=== PATIENT | male | born 1990 | race Caucasian/White ===

== ENCOUNTER 2021-04-28 13:43 | Emergency (ER) | payer MEDICAID, SELFPAY ==
[2021-04-28 13:44] VITALS: BP 138/63; PULSE 100; RESP 16; TEMP 36; O2SAT 98; BMI 25.7
--- NOTE | 2021-04-28 14:11 | EKG12_ITS ---
Test Reason : SOB Blood Pressure : / mmHG Vent. Rate : 077 BPM Atrial Rate : 077 BPM P-R Int : 146 ms QRS Dur : 086 ms QT Int : 350 ms P-R-T Axes : 077 065 058 degrees QTc Int : 396 ms Normal sinus rhythm Normal ECG Confirmed by DONTE GONZALES, KALYAN ([id number]), editor map RUFINA PETERS ([id number]) on 05/01/2021 10:54:01 AM Referred By: JYOTI Confirmed By:KALYAN KENT MD
--- NOTE | 2021-04-28 14:12 | EDS_ITS ---
HPI History of Present Illness Chief Complaint: Shortness of Breath Narrative Narrative: 31-year-old male presenting with shortness of breath. He states has been short of breath for the last couple of weeks. Its been progressive. He states he has a sporadic cough and taste like there is blood in his mouth however he is not coughing anything up. He states when he takes a deep breath it hurts in the left ribs. Patient states that his workouts have been suffering because he is more fatigued than usual. He states he going to a couple of reps and then he gets sweaty. Patient is a smoker. He has no cardiac history. No history of DVT/PE and no risk factors. Patient states he had COVID a year ago and did not feel like this. He is not had fever, chills, body aches, change in taste or smell. Patient also reports that he is lost the hair on his knuckles. He noticed it last week but does not know when this occurred. He also reports that he believes he is breathing and metal shavings at work. And this could possibly be the cause. PFSH PFS Medical History no medical history Home Medications No Known/Unobtainable [No Known Home Medications] 04/03/16 [History Last Taken Unknown] Allergy/AdvReac Type Severity Reaction Status Date / Time No Known Allergies Allergy Verified 04/28/21 13:46 Surgical History no surgical history Social History Smoking Status: Current every day smoker tobacco type: cigarettes ROS ROS ED Constitutional Constitutional ED: Reports sweats; Denies chills or fever(s) Eyes Eyes: Denies blurry vision or diplopia ENT ENT ED: Denies rhinorrhea or sore throat Cardiovascular Cardiovascular: Reports chest pain Respiratory/Chest Respiratory/Chest: Reports cough and dyspnea Gastrointestinal Gastrointestinal: Denies abdominal pain, nausea or vomiting Genitourinary Genitourinary ED: Denies dysuria or hematuria Musculoskeletal Musculoskeletal: Denies arthralgias or myalgias Integumentary Denies rash Neurologic Neurologic: Denies headache(s) or paresthesias Psychiatric Psychiatric: Denies anxiety or depression EXAM Physical Exam Const Vital Signs: 04/28/21 13:44 04/28/21 13:53 04/28/21 14:20 Temperature 96.8 F L Temperature Source Temporal Pulse Rate 100 Respiratory Rate 16 Respiratory Effort Normal Respiratory Depth Normal Respiratory Pattern Normal Blood Pressure 138/63 H Blood Pressure Mean 88 Pulse Ox 98 Oxygen Delivery Method Room Air Room Air Room Air 04/28/21 15:13 Temperature Temperature Source Pulse Rate 96 Respiratory Rate 22 H Respiratory Effort Respiratory Depth Respiratory Pattern Blood Pressure 126/80 H Blood Pressure Mean 95 Pulse Ox 98 Oxygen Delivery Method Room Air Positive well nourished General Appearance ED: NAD; Negative for pallor HEENT Reports moist mucous membranes atraumatic Eyes PERRL and EOMs intact bilaterally Resp normal respiratory effort and clear to auscultation bilaterally Cardio regular rate and regular rhythm GI non-tender and non-distended Palpation: soft Neuro oriented x3, CN's II-XII intact bilaterally and no sensory deficits noted Sensorium / Orientation: alert Motor Exam: strength 5/5 throughout Psych Mood & Affect: anxious Skin General Skin Exam: Negative for jaundice or pallor Rashes: no rashes MDM MDM MDM Narrative Medical decision making narrative: Patient presenting with shortness of breath and fatigue. I did obtain an EKG which is a sinus rhythm with a ventricular to 77 bpm without sign of ischemic change or dysrhythmia. Chest x-ray my interpretation shows no acute cardiopulmonary process the radiologist agree. Unremarkable. BMP shows a slight elevation of carbon oxide at 33. The patient is a smoker. He is alert and awake. High-sensitivity troponin is 6. D-dimer is negative at 0.37. I do not believe the patient needs a delta troponin because he is young and otherwise healthy. Patient did mention that he was smoking more marijuana and cigarettes and drinking a little more alcohol but not it was at the same time. I counseled these things could make him have more fatigue and make it more difficult for him to work out and this may be affecting him. He acknowledged understanding of this. He was given primary care follow- up. Patient safe for discharge. Impression: 1. Dyspnea 2. Generalized weakness Lab Data Labs: Laboratory Results - last 24 hr 04/28/21 04/28/21 04/28/21 13:54 13:54 13:54 WBC 6.4 RBC 5.23 Hgb 16.6 H Hct 48.7 MCV 93.1 MCH 31.7 MCHC 34.1 RDW Std Deviation 41.1 RDW Coeff of Darwin 11.9 Plt Count 305 MPV 9.5 Immature Gran % (Auto) 0.500 Neut % (Auto) 67.4 Lymph % (Auto) 20.5 [place] % (Auto) 8.6 Eos % (Auto) 2.2 Baso % (Auto) 0.8 Absolute Neuts (auto) 4.3 Absolute Lymphs (auto) 1.31 Nucleated RBC % 0 D-Dimer Quant (PE/DVT) 0.37 Sodium 138 Potassium 3.7 Chloride 103 Carbon Dioxide 33.0 H Anion Gap 2 L BUN 13 Creatinine 0.90 Estim Creat Clear Calc 103.45 Est GFR (MDRD) Af Amer 127 Est GFR (MDRD) Non-Af 105 BUN/Creatinine Ratio 14.5 Glucose 92 Calcium 9.6 Troponin I High Sens 6 Radiography Diagnostic Testing: Clinical Impression(s) from Imaging Studies Chest X-Ray 04/28/21 14:30 IMPRESSION: Hyperinflation. The lungs are clear. Electronically Signed: Syed Reed MD at 14:48 EST , Discharge Plan Triage Chief Complaint: Shortness of Breath ED Provider: Timo Jensen Dx/Rx/DC Orders Instructions: ED Dyspnea, ED Weakness (Uncertain Cause) Prescriptions: No Action No Known Home Medications RF: 0 Primary Care Provider: Care Physician,No Primary Referrals: Osvaldo Hernandez MD [STAFF PHYSICIAN] - 3-5 Days Care Physician,No Primary [Primary Care Provider] - Disposition Disposition: Home, Self Care Discharge Date/Time: 04/28/21 15:17
[2021-04-28 14:24] LABS: Absolute Lymphocyte Count 1.31 X10^3/uL (0.83-4.51); Absolute Neutrophil Count 4.3 X10^3/uL (2.0-7.7); Basophil# 0.05 X10^3/uL; Basophil% 0.8 % (0-1); Eosinophil# 0.14 X10^3/uL; Eosinophils% 2.2 % (0-5); Hematocrit 48.7 % (40-54); Hemoglobin 16.6 g/dL (13.0-16.5); Lymphocyte # 1.31 X10^3/ul (0.83-4.51); Lymphocyte % 20.5 % (19-41); Mean Corp Hgb Conc 34.1 g/dL (32-36); Mean Corpuscular Hgb 31.7 pg (27.0-32.0); Mean Corpuscular Volume 93.1 fL (80-94); Mean Platelet Vol. 9.5 fl (6.2-12.0); Monocyte# 0.55 X10^3/uL; Monocyte% 8.6 % (0-10); NRBC Flagged by Analyzer 0 % (0-5); Neutrophil % 67.4 % (47-70); Platelet Count 305 K/mm3 (150-450); RBC Distribution Width CV 11.9 % (11.6-14.6); RBC Distribution Width SD 41.1 fl (35.1-43.9); Red Blood Count 5.23 M/mm3 (4.6-6.2); White Blood Count 6.4 K/mm3 (4.4-11.0)
--- NOTE | 2021-04-28 14:30 | RAD_ITS ---
STUDY: X-RAY CHEST REASON FOR EXAM: Male, 31 years old. Chest pain . Shortness of breath. TECHNIQUE: Single AP portable view of the chest. COMPARISON: None. FINDINGS: EKG electrodes are seen. Hyperinflation. The lungs are clear. There is no demonstrated pleural abnormality. Normal size heart. Normal mediastinum and trevon. Normal visualized pulmonary arteries. Normal visualized aortic arch and descending thoracic aorta. Normal visualized thoracic spine. Normal visualized ribs, clavicles, and shoulders. There is no demonstrated abnormality of the visualized soft tissue structures of the upper abdomen. RAD/Chest 1 View (Portable) IMPRESSION: Hyperinflation. The lungs are clear. Electronically Signed: Syed Reed MD at 14:48 EST ,
[2021-04-28 14:37] LABS: Anion Gap 2 (5-15); BUN 13 mg/dL (7-18); BUN/Creat Ratio 14.5 RATIO (10-20); Calcium,Total 9.6 mg/dL (8.5-10.1); Chloride 103 mmol/L (98-107); EST Glomerular Filtration Rate 105 mL/min (>60); Est Glom Filt Rate - Afr Amer 127 mL/min (>60); Estimated Creatinine Clearance 103.45 ml/min; Glucose 92 mg/dL (74-106); Potassium 3.7 mmol/L (3.5-5.1); Sodium Level 138 mmol/L (136-145); Troponin-I HS 6 pg/mL (3.0-78.0)
[2021-04-28 14:46] LABS: D-Dimer Quantitative (DVT/PE) 0.37 FEU/ug/m (0.27-0.49)
--- NOTE | 2021-04-28 14:55 | CM.ED ---
Social Work Consult: No Primary Care Physician (PCP). Referral source: Self referral. Met with patient in room. Introduced self and social service director role. Patient agreeable to speak with this social service director. Patient confirms to not have a PCP and states I should probably get one. Patient with multiple health related concerns/questions. This social service director encouraged patient to ask questions to medical staff in ED today and then to follow up with a PCP in the community so that patient has someone to ask medical questions to. Patient voiced understanding. Patient with no concerns on returning to the community. This social service director provided patient with list of PCP's that accept patient insurance and are local to patient geographical region. No further services indicated. Malcom HALL, HANNA
[2021-04-28 15:13] VITALS: BP 126/80; PULSE 96; RESP 22; O2SAT 98
== END 2021-04-28 15:17 | disposition home or self-care (01) ==
PROVIDERS: Emergency Provider Student in an Organized Health Care Education/Training Program; Visit Provider Student in an Organized Health Care Education/Training Program
DX: R06.02 Shortness of breath (principal); R53.1 Weakness; F17.210 Nicotine dependence, cigarettes, uncomplicated; Z86.16 Personal history of COVID-19
CPT/HCPCS: 71045; 80048; 84484; 85025; 85379; 93005; 99284; A4216

== ENCOUNTER 2021-05-07 20:41 | Emergency (ER) | payer MEDICAID, SELFPAY ==
[2021-05-07 20:42] VITALS: BP 124/77; PULSE 107; RESP 16; TEMP 36.6; O2SAT 97; BMI 24.6
--- NOTE | 2021-05-07 21:04 | ED.VIS.DENTA ---
HPI History of Present Illness Chief Complaint: Dental Informant: patient Onset/Context/Timing Onset: Yesterday Context: Gradual Onset Timing: Continuous Quality: throbbing Location: left maxillary molar Current Severity: Severe Maximum Severity: Severe Worsened by: eating Relieved by: - (nothing but hasn't tried) Associated Symptoms Assocated Symptom - Dental: Negative for fever, jaw swelling or face swelling Narrative Narrative: Patient presents with left maxillary dental pain that has been there since yesterday. He denies any bleeding. Denies any fevers chills systemic symptoms. PFSH PFSH Medical History no medical history no medical history Home Medications No Known/Unobtainable [No Known Home Medications] 04/03/16 [History Last Taken Unknown] amoxicillin 500 mg PO TID #30 tab 05/07/21 [Rx Last Taken Unknown] naproxen 500 mg PO BID PRN #20 tab 05/07/21 [Rx Last Taken Unknown] tramadol 50 mg PO Q4H PRN PRN 2 Days #12 tab 05/07/21 [Rx Last Taken Unknown] Allergy/AdvReac Type Severity Reaction Status Date / Time No Known Allergies Allergy Verified 05/07/21 20:43 Surgical History no surgical history Social History Smoking Status: Current every day smoker tobacco type: cigarettes ROS ROS ED Constitutional Constitutional ED: Denies chills or fever(s) Eyes Eyes: Denies change in vision or double vision ENT ENT ED: Reports dental pain; Denies sinus pain or throat swelling Cardiovascular Cardiovascular: Denies chest pain or palpitations Respiratory/Chest Respiratory/Chest: Denies cough or dyspnea Integumentary Denies abscess or rash Neurologic Neurologic: Denies headache(s), paresthesias or weakness EXAM Physical Exam Const Vital Signs: 05/07/21 20:42 Temperature 97.8 F Temperature Source Temporal Pulse Rate 107 H Respiratory Rate 16 Blood Pressure 124/77 H Blood Pressure Mean 92 Pulse Ox 97 Oxygen Delivery Method Room Air Positive well nourished and well developed General Appearance ED: well developed and NAD HEENT HEENT Narrative: No trismus. Talking normally. Sublingual tissues nondistended, tongue normal. He has a left maxillary wisdom tooth that is crowded and external to the line of the other teeth. There is no gingival bleeding or palpable abscess but the tooth is tender, since it is so crowded I have limited visibility. No external abscess palpable, no lymphadenopathy. Face and Sinus: sinuses nontender Throat: posterior oropharynx normal Eyes PERRL and EOMs intact bilaterally Neck no lymphadenopathy and supple Resp normal respiratory effort Neuro oriented x3 and CN's II-XII intact bilaterally Sensorium / Orientation: alert Gait (Neuro): normal gait Psych mental status grossly normal and thought process normal Skin no rashes or lesions noted and no wounds MDM MDM MDM Narrative Medical decision making narrative: Patient was told that he had a crowded wisdom tooth did not just happen yesterday and he agrees something is fell off for quite a while but this is a new and different pain than he has had. Certainly there is a possibility he is having an early dental infection, but there is no abscess to drain right now. Prescribed amoxicillin and tramadol as well as Naprosyn after reviewing his OARRS report which is negative. Discharge Plan Triage Chief Complaint: Dental ED Provider: Bridger Nguyễn Dx/Rx/DC Orders Clinical Impression: Pain, dental Instructions: ED Dental Pain Prescriptions: New tramadol 50 MG tablet 50 mg PO Q4H PRN PRN (Reason: Pain) 2 Days Qty: 12 RF: 0 amoxicillin 500 MG tablet 500 mg PO TID Qty: 30 RF: 0 naproxen 500 MG tablet 500 mg PO BID PRN Qty: 20 RF: 0 No Action No Known Home Medications RF: 0 Primary Care Provider: Care Physician,No Primary Referrals: Avi Amaral DDS [STAFF PHYSICIAN] - (Or may choose Dr. Amaral, oral surgery) Dentist,Your [STAFF PHYSICIAN] - As soon as possible (See attached referral list) Disposition Disposition: Home, Self Care
[2021-05-07] MEDS: traMADol 50 MG Tablet PO (21:17)
[2021-05-07] MEDS: Naproxen 250 MG Tablet 500 MG PO (21:17)
[2021-05-07] MEDS: AMOXICILLIN 500 MG CAPSULE PO (21:17)
== END 2021-05-07 21:20 | disposition home or self-care (01) ==
PROVIDERS: Emergency Provider Emergency Medicine; Visit Provider Emergency Medicine
DX: K08.89 Other specified disorders of teeth and supporting structures (principal); F17.210 Nicotine dependence, cigarettes, uncomplicated
CPT/HCPCS: 99283

== ENCOUNTER 2021-07-04 15:13 | Emergency (ER) | payer MEDICAID, SELFPAY ==
[2021-07-04 15:14] VITALS: BP 125/96; PULSE 107; RESP 18; TEMP 36.1; O2SAT 98; BMI 26.6
--- NOTE | 2021-07-04 15:16 | RAD_ITS ---
STUDY: X-RAY CHEST REASON FOR EXAM: Male, 31 years old. dyspnea TECHNIQUE: AP portable COMPARISON: 04/28/2021 FINDINGS: The lungs are clear and expanded. There is no demonstrated pleural abnormality. Normal size heart. Normal mediastinum and trevon. Normal visualized pulmonary arteries. Normal visualized aortic arch and descending thoracic aorta. Normal visualized thoracic spine. Normal visualized ribs, clavicles, and shoulders. There is no demonstrated abnormality of the visualized soft tissue structures of the upper abdomen. RAD/Chest 1 View IMPRESSION: Normal x-ray examination of the chest. Electronically Signed: Josafat Fletcher MD at 16:34 EDT ,
--- NOTE | 2021-07-04 15:17 | EKG12_ITS ---
Test Reason : Blood Pressure : / mmHG Vent. Rate : 085 BPM Atrial Rate : 085 BPM P-R Int : 150 ms QRS Dur : 098 ms QT Int : 364 ms P-R-T Axes : 081 074 058 degrees QTc Int : 433 ms Normal sinus rhythm Normal ECG Confirmed by DONTE GONZALES, KLAYAN ([id number]), editor & co founder RUFINA PETERS ([id number]) on 07/05/2021 12:53:20 PM Referred By: Confirmed By:KALYAN KENT MD
--- NOTE | 2021-07-04 15:29 | EDS_ITS ---
HPI History of Present Illness Chief Complaint: Mental Health Informant: patient Narrative Narrative: 31-year-old male presenting to the emergency room requesting detox for alcohol. He states that he has been drinking alcohol for most of his life. Is been his daily habit. He states that he also smokes methamphetamines. He states that he went to 180 today was referred to the hospital. He reports some paranoia regarding a potential loosely affiliated bicycle gang and [employer] that is attacking people. He states he has been living in the [facility]. He is not currently employed. He states he has not used amphetamines for a couple days but feels that he is still seeing demons. He states he spoke with the police district switchboard operator last night and it reports that he was not making any sense because he could not see a real people's faces only demons faces. [facility] Medical History (Updated 07/04/21 @ 20:[address] Richard Roach DO) Alcoholism History of spinal fracture Home Medications No Known/Unobtainable [No Known Home Medications] 04/03/16 [History Last Taken Unknown] Allergy/AdvReac Type Severity Reaction Status Date / Time No Known Allergies Allergy Verified 07/04/21 15:16 Social History (Updated 07/04/21 @ 15:[address] Richard Roach DO) Smoking Status: Current every day smoker tobacco type: cigarettes alcohol intake: current alcohol intake frequency: 3 or more drinks per day substance use type: amphetamines and methamphetamine ROS ROS ED Constitutional Constitutional ED: Denies chills, fever(s) or weight loss Eyes Eyes: Denies change in vision or diplopia ENT ENT ED: Denies ear pain, rhinorrhea or sore throat Cardiovascular Cardiovascular: Denies chest pain, orthopnea, palpitations or racing heartbeat Respiratory/Chest Respiratory/Chest: Reports dyspnea; Denies cough or orthopnea Gastrointestinal Gastrointestinal: Denies abdominal pain, diarrhea, nausea or vomiting Genitourinary Genitourinary ED: Denies dysuria, hematuria or urinary frequency Musculoskeletal Musculoskeletal: Denies arthralgias or myalgias Integumentary Reports other Details: Blisters on feet. Sunburn. ; Denies abscess or rash Neurologic Neurologic: Denies headache(s) or weakness Psychiatric Psychiatric: Reports anxiety and depression; Denies suicidal ideation or suicidal thoughts Endocrine Endocrinology: Denies polydipsia, polyphagia or polyuria Allergic/Immunologic Allergic/Immunologic ED: Denies mouth swelling, tongue swelling or urticaria EXAM Physical Exam Const Vital Signs: 07/04/21 15:14 07/04/21 15:35 07/04/21 17:18 Temperature 97 F L Temperature Source Temporal Pulse Rate 107 H 88 79 Respiratory Rate 18 16 16 Blood Pressure 125/96 H 138/66 H 104/75 Blood Pressure Mean 105 90 84 Blood Pressure Source Monitor Blood Pressure Position Semi-Fowlers Blood Pressure Location Right Arm Pulse Ox 98 98 99 Oxygen Delivery Method Room Air Room Air Room Air 07/04/21 19:14 Temperature Temperature Source Pulse Rate Respiratory Rate 16 Blood Pressure Blood Pressure Mean Blood Pressure Source Blood Pressure Position Blood Pressure Location Pulse Ox Oxygen Delivery Method Positive well nourished, well developed and unkempt; Negative for obese General Appearance ED: unkempt and well developed Nutritional Appearance: Negative for obese HEENT Reports normocephalic, head/scalp atraumatic, TM's clear and moist mucous membranes atraumatic Tympanic Membrane ED: Yes TM's clear Eyes PERRL and EOMs intact bilaterally Neck no lymphadenopathy, supple and no JVD Resp normal respiratory effort and clear to auscultation bilaterally Cardio regular rate, regular rhythm and no murmurs GI normal to inspection, nondistended, normoactive bowel sounds and non-tender Palpation: soft Back/Spine no CVA tenderness and normal ROM Extremity normal to inspection General Extremety ED: Negative for edema General Extremity: Negative for edema Neuro oriented x3 and CN's II-XII intact bilaterally Sensorium / Orientation: alert Motor Exam: strength 5/5 throughout Psych Psych Narrative: Patient appears internally stimulated and paranoid. He has nonlinear thinking. He expresses paranoid hallucinations. Appearance: unkempt Mood & Affect: Negative for depressed or tearful Skin no rashes or lesions noted and no wounds Skin Narrative: Patient has extensive sunburn on torso. He has blistering and sunburns of the feet. MDM MDM MDM Narrative Medical decision making narrative: My interpretation of the plain films of the chest is no acute process normal mediastinal silhouette. Medical screening labs showed a tox work-up that is positive for amphetamines ecstasy and cannabinoids. Potassium noted to be 3.1 and we will give some potassium here. His COVID is negative. Patient was assessed by crisis. We are going to be working towards psychiatric placement. Lab Data Attestation: I reviewed the patient's lab results. Labs: Laboratory Results - last 24 hr 07/04/21 07/04/21 07/04/21 16:00 16:00 16:00 WBC 7.5 RBC 4.58 L Hgb 14.1 Hct 41.6 MCV 90.8 MCH 30.8 MCHC 33.9 RDW Std Deviation 38.8 RDW Coeff of Darwin 11.7 Plt Count 249 MPV 9.3 Immature Gran % (Auto) 0.300 Neut % (Auto) 66.4 Lymph % (Auto) 22.3 [place] % (Auto) 6.8 Eos % (Auto) 3.5 Baso % (Auto) 0.7 Absolute Neuts (auto) 5.0 Absolute Lymphs (auto) 1.66 Nucleated RBC % 0 Sodium 138 Potassium 3.1 L Chloride 102 Carbon Dioxide 31.0 Anion Gap 5 BUN 19 H Creatinine 0.78 Estim Creat Clear Calc 119.36 Est GFR (MDRD) Af Amer 148 Est GFR (MDRD) Non-Af 123 BUN/Creatinine Ratio 24.3 H Glucose 118 H Calcium 9.2 Total Bilirubin 0.50 AST 40 H ALT 35 Alkaline Phosphatase 82 Total Protein 7.4 Albumin 3.7 Globulin 3.7 Albumin/Globulin Ratio 1.0 Urine Opiates Screen Urine Methadone Screen Ur Barbiturates Screen Ur Phencyclidine Scrn Ur Amphetamines Screen MDMA (Ecstasy) Screen U Benzodiazepines Scrn Urine Cocaine Screen U Cannabinoids Screen Ur Drug Screen Comment Ethyl Alcohol 5.0 07/04/21 17:10 WBC RBC Hgb Hct MCV MCH MCHC RDW Std Deviation RDW Coeff of Darwin Plt Count MPV Immature Gran % (Auto) Neut % (Auto) Lymph % (Auto) [place] % (Auto) Eos % (Auto) Baso % (Auto) Absolute Neuts (auto) Absolute Lymphs (auto) Nucleated RBC % Sodium Potassium Chloride Carbon Dioxide Anion Gap BUN Creatinine Estim Creat Clear Calc Est GFR (MDRD) Af Amer Est GFR (MDRD) Non-Af BUN/Creatinine Ratio Glucose Calcium Total Bilirubin AST ALT Alkaline Phosphatase Total Protein Albumin Globulin Albumin/Globulin Ratio Urine Opiates Screen NEGATIVE Urine Methadone Screen NEGATIVE Ur Barbiturates Screen NEGATIVE Ur Phencyclidine Scrn NEGATIVE Ur Amphetamines Screen POSITIVE H MDMA (Ecstasy) Screen POSITIVE H U Benzodiazepines Scrn NEGATIVE Urine Cocaine Screen NEGATIVE U Cannabinoids Screen POSITIVE H Ur Drug Screen Comment Ethyl Alcohol Radiography Diagnostic Testing: Clinical Impression(s) from Imaging Studies Chest X-Ray 07/04/21 15:16 IMPRESSION: Normal x-ray examination of the chest. Electronically Signed: Josafat Fletcher MD at 16:34 EDT Reading Location ID and State: [address] [place] [address] , Service support , EKG Initial EKG: Attestation: I personally reviewed and interpreted this EKG as follows: Comments: Normal sinus rhythm with a ventricular rate of 85 bpm Discharge Plan Triage Chief Complaint: Mental Health Other Complaint: Substance Abuse ED Provider: Richard Roach Dx/Rx/DC Orders Clinical Impression: Alcoholism, Methamphetamine abuse, Acute paranoia, Hallucinations Prescriptions: No Action No Known Home Medications RF: 0 Primary Care Provider: Care Physician,No Primary Referrals: Care Physician,No Primary [Primary Care Provider] - Disposition Disposition: Psychiatric Hospital or Unit
[2021-07-04 15:35] VITALS: BP 138/66; PULSE 82; PULSE 88; RESP 15; RESP 16; O2SAT 98
[2021-07-04 16:14] LABS: Absolute Lymphocyte Count 1.66 X10^3/uL (0.83-4.51); Basophil# 0.05 X10^3/uL; Basophil% 0.7 % (0-1); Eosinophil# 0.26 X10^3/uL; Eosinophils% 3.5 % (0-5); Hematocrit 41.6 % (40-54); Hemoglobin 14.1 g/dL (13.0-16.5); Lymphocyte # 1.66 X10^3/ul (0.83-4.51); Lymphocyte % 22.3 % (19-41); Mean Corp Hgb Conc 33.9 g/dL (32-36); Mean Corpuscular Hgb 30.8 pg (27.0-32.0); Mean Corpuscular Volume 90.8 fL (80-94); Mean Platelet Vol. 9.3 fl (6.2-12.0); Monocyte# 0.51 X10^3/uL; Monocyte% 6.8 % (0-10); NRBC Flagged by Analyzer 0 % (0-5); Neutrophil # 4.96 X10^3/uL (2.7-7.7); Neutrophil % 66.4 % (47-70); Platelet Count 249 K/mm3 (150-450); RBC Distribution Width CV 11.7 % (11.6-14.6); RBC Distribution Width SD 38.8 fl (35.1-43.9); Red Blood Count 4.58 M/mm3 (4.6-6.2); White Blood Count 7.5 K/mm3 (4.4-11.0)
--- NOTE | 2021-07-04 16:14 | ED.RN ---
during evaluation pt expressed that he was seeing demons. the demons don't speak. states that they try to choke him and steal his things. pt denied thoughts of self harm or harming others. sabine carmona rn [id number]
[2021-07-04 16:35] LABS: AST(SGOT) 40 U/L (15-37); Alanine Aminotransfer ALT/SGPT 35 U/L (16-61); Albumin, Serum 3.7 g/dL (3.2-5.0); Alkaline Phosphatase 82 U/L (45-117); Anion Gap 5 (5-15); BUN 19 mg/dL (7-18); BUN/Creat Ratio 24.3 RATIO (10-20); Calcium,Total 9.2 mg/dL (8.5-10.1); Chloride 102 mmol/L (98-107); Creatinine, Serum 0.78 mg/dL (0.70-1.30); EST Glomerular Filtration Rate 123 mL/min (>60); Est Glom Filt Rate - Afr Amer 148 mL/min (>60); Estimated Creatinine Clearance 119.36 ml/min; Globulin 3.7 g/dL (2.2-4.2); Glucose 118 mg/dL (74-106); Potassium 3.1 mmol/L (3.5-5.1); Protein, Total 7.4 g/dL (6.4-8.2); Sodium Level 138 mmol/L (136-145)
[2021-07-04 17:18] VITALS: BP 104/75; PULSE 79; RESP 16; O2SAT 99
[2021-07-04 17:47] LABS: Amphetamine Urine VISTA POSITIVE (<1000 ng/mL); Barbiturate Urine VISTA NEGATIVE (< 200 ng/mL); Benzodiazepine Urine VISTA NEGATIVE (< 200 ng/mL); Cocaine Urine VISTA NEGATIVE (< 300 ng/mL); Ecstacy Urine VISTA POSITIVE (< 500 ng/mL); Methadone Urine VISTA NEGATIVE (< 300 ng/mL); PCP Urine VISTA NEGATIVE (< 25 ng/mL); THC Urine VISTA POSITIVE (< 50 ng/mL); Vista UDS pH Range 6
[2021-07-04 19:14] VITALS: RESP 16
--- NOTE | 2021-07-04 20:42 | ED.RN ---
pt is resting in bed. eyes closed without s/s of distress. pt has been evaluated by crisis and is waiting for psych acceptance. meal was provided. pt is aware of the wait. sabine carmona rn [id number]
[2021-07-04 21:39] VITALS: BP 113/51; PULSE 67; RESP 16; O2SAT 99
--- NOTE | 2021-07-04 23:38 | NURSING ---
[facility] CALLED [phone]. INFORMED THAT PT REFERRED TO [facility].
[2021-07-05] VITALS (12 sets, daily range): BP systolic 109–129; BP diastolic 58–71; PULSE 59–78; RESP 14–18; TEMP 36.4–37.2; O2SAT 15–100
--- NOTE | 2021-07-05 02:01 | ED.RN ---
Crisis calls stating patient was denies by [facility], and is now pending at [facility].
--- NOTE | 2021-07-05 08:39 | NURSING ---
Pt very active in room, can't sit still and reports can't sleep anymore. Pt is concerned about securing his guitars and amp from the [employer] gang. Verbalizes that all of his belongings are stuffed in the bushes or at the [employer] and that is all he has to his name. Continues to fixate on this and getting a job. POC discussed again and reasons why he is in the hospital. Pt somewhat agreeable to POC and thanks this RN.
[2021-07-05] MEDS: Ziprasidone IM 20 MG/ML VIAL IM (15:34)
--- NOTE | 2021-07-05 15:38 | NURSING ---
Went into pt's room to assess him after he called out to smoke a cigarette. Informed pt that he was not able to do so while hospitalized and offered nicotine gum or a nicotine patch. Again informed pt that we were waiting for pt to be placed by crisis. Pt stated that he was not above running out of the facility and has before. After mentioning to pt that he would not be able to do this because he was pink-slipped, he ripped off monitoring equipment during assessment and proceeded to walk down the halls in attempt to elope. Pt was stopped by security and police captain precinct. Pt escorted to room 4. Medicated per Dr. Roach's orders. Pt not restrained at this time. Security and PD remain in department for safety.
--- NOTE | 2021-07-05 15:59 | NURSING ---
CALLED [facility]. TALKED TO [facility]. THEY ARE STILL WORKING ON PATIENT PLACEMENT
--- NOTE | 2021-07-05 19:57 | ED.RN ---
UPDATE FROM [facility] AT [facility], PT DECLINED EVERYWHERE BUT STILL PENDING AT [facility]. [facility] WILL TRY TO ADMIT TO RESIDENTIAL PROGRAM. SHE ALSO REQUESTS ANOTHER TOX SCREEN WHEN PT WAKES, ALSO WILL COME UP AND RE-ASSESS PT WHEN AWAKE.
--- NOTE | 2021-07-05 21:31 | ED.RN ---
PER HONORIO FROM [facility], PT HAS BEEN ACCEPTED AT THEIR [facility] FACILITY. PT STATES HE WISHES TO GO TO THIS FACILITY, ACKNOWLEDGES IT WILL BE A VOLUNTARY ADMISSION. PT SPOKE TO HONORIO BY PHONE, ANSWERED ALL INTAKE QUESTIONS. PER HONORIO PT CAN COME TO FACILITY AT ANY TIME TONIGHT OR TOMORROW. HONORIO WILL CALL [facility] AT [facility] IN ATTEMPT TO ARRANGE TRANSPORTATION.
[2021-07-06 00:16] VITALS: RESP 14
[2021-07-06 00:49] VITALS: BP 110/76; PULSE 60; RESP 14; O2SAT 96
--- NOTE | 2021-07-06 00:58 | ED.RN ---
PT YELLING ABOUT HIS BELONGS THAT ARE SUPPOSEDLY HIDDEN AT THE [facility]. PT PACING AND CUSSING IN ROOM. PT FLOPS DOWN IN EMS COT, CONTINUES TO COMPLAIN AND CUSS. EMS IS LEAVING DEPARTMENT WITH PT.
== END 2021-07-06 01:01 ==
PROVIDERS: Emergency Provider Emergency Medicine; Visit Provider Emergency Medicine
DX: F10.20 Alcohol dependence, uncomplicated (principal); F15.10 Other stimulant abuse, uncomplicated; F22 Delusional disorders; F17.210 Nicotine dependence, cigarettes, uncomplicated; E87.6 Hypokalemia
CPT/HCPCS: 71045; 80053; 80307; 82077; 85025; 87811; 93005; 99285; J3486